=== PATIENT | male | born 1985 | race African-American/Black ===

== ENCOUNTER 2019-10-16 18:38 | Emergency (ER) | payer OTHER, SELFPAY ==
[2019-10-16] MEDS ORDERED: Ibuprofen 800 MG TAB ONE (18:47)
--- NOTE | 2019-10-16 23:21 | RAD ---
RIGHT SHOULDER THREE VIEWS: 10/16/19 No fracture, dislocation or AC joint widening was seen. A line seen beneath the acromion on two of th e views is probably trabecular in nature. It really does not appear to be an acute fracture. My under standing is that most of the pain is in the scapula which currently appears normal. The adjacent visi ble ribs appear normal. IMPRESSION: No acute finding. POS: HOME
== END 2019-10-16 19:31 | disposition home or self-care (01) ==
LOC: BURERS 18:38
DX: S40.011A Contusion of right shoulder, initial encounter (principal); I10 Essential (primary) hypertension; W18.09XA Striking against other object with subsequent fall, initial encounter; Y92.69 Other specified industrial and construction area as the place of occurrence of the external cause